=== PATIENT | female | born 1995 | race Two or more races ===

== ENCOUNTER 2025-02-17 07:01 | Outpatient (CLI) | payer OTHER ==
[2025-02-17 07:43] LABS: Hematocrit 40.8 % (36.0-46.0); Hemoglobin 14.0 g/dL (12.2-16.2); Mean Corpuscular Hemoglobin 28.6 pg (28.0-32.0); Mean Corpuscular Volume 83.1 fL (80.0-100.0); Nucleated Red Blood Cells % 0.1 %
[2025-02-17 07:54] LABS: Beta HCG, Quantitative 0.6 mIU/mL (1.5-4.2)
[2025-02-17 07:56] LABS: Alanine Aminotransferase 13 U/L (7-40); Alkaline Phosphatase 57 U/L (46-116); Anion Gap 10 (5-15); BUN/Creatinine Ratio 10.1 (10.0-20.0); Bilirubin, Total 0.5 mg/dL (0.2-1.0); Calcium 9.7 mg/dL (8.7-10.4); Carbon Dioxide 25 mmol/L (20-31); Chloride 104 mmol/L (98-107); Cholesterol 185 mg/dL (< 200); Glucose 94 mg/dL (74-106); HDL Cholesterol 48 mg/dL (40-59); Potassium 4.0 mmol/L (3.5-5.1); Sodium 139 mmol/L (136-145); Total Protein 8.0 g/dL (5.7-8.2); Triglycerides 120 mg/dL (< 150)
[2025-02-17 07:57] LABS: Albumin 5.0 g/dL (3.2-4.8); Blood Urea Nitrogen 7 mg/dL (9-23)
[2025-02-17 08:31] LABS: Urine Protein, UAD Negative (Negative)
[2025-02-17 08:45] LABS: Thyroid Stimulating Hormone 0.73 uIU/mL (0.55-4.78)
== END 2025-02-17 17:00 | disposition home or self-care (01) ==
LOC: LAB 07:01
PROVIDERS: ATTEND Nurse Practitioner Family
DX: E55.9 Vitamin D deficiency, unspecified (principal); H81.10 Benign paroxysmal vertigo, unspecified ear; Z32.01 Encounter for pregnancy test, result positive
CPT/HCPCS: 36415; 80053; 80061; 81001; 81025; 82306; 83036; 83970; 84443; 84702; 85025

== ENCOUNTER 2025-04-08 07:31 | Outpatient (CLI) | payer OTHER ==
[2025-04-08 08:05] LABS: Anion Gap 9 (5-15); Carbon Dioxide 25 mmol/L (20-31); Chloride 107 mmol/L (98-107); Potassium 4.1 mmol/L (3.5-5.1); Sodium 141 mmol/L (136-145)
[2025-04-08 08:07] LABS: Calcium 9.1 mg/dL (8.7-10.4)
[2025-04-08 08:11] LABS: BUN/Creatinine Ratio 14.1 (10.0-20.0); Blood Urea Nitrogen 9 mg/dL (9-23); Glucose 97 mg/dL (74-106)
== END 2025-04-08 17:00 | disposition home or self-care (01) ==
LOC: LAB 07:31
PROVIDERS: ATTEND Nurse Practitioner Family
DX: N92.6 Irregular menstruation, unspecified (principal)
CPT/HCPCS: 36415; 80048

== ENCOUNTER 2025-06-09 08:55 | Outpatient (CLI) | payer OTHER ==
[2025-06-09 09:33] LABS: Hematocrit 38.8 % (36.0-46.0); Hemoglobin 13.1 g/dL (12.2-16.2); Mean Corpuscular Hemoglobin 29.0 pg (28.0-32.0); Mean Corpuscular Volume 86.0 fL (80.0-100.0); Nucleated Red Blood Cells % 0.0 %
[2025-06-09 11:09] LABS: Amphetamine Screen, Urine Neg (NEGATIVE); Barbiturate Scree,Urine Neg (NEGATIVE); Benzodiazephine Screen, Urine Neg (NEGATIVE); Cannabinoid Screen, Urine Neg (NEGATIVE); Cocaine Screen, Urine Neg (NEGATIVE); Opiate Scree,Urine Neg (NEGATIVE); Phencyclidine Screen, Urine Neg (NEGATIVE)
[2025-06-11 04:06] LABS: Chlamydia Trachomatis, NAA Negative (Negative); Neisseria gonorrhoeae, NAA Negative (Negative)
== END 2025-06-09 17:00 | disposition home or self-care (01) ==
LOC: LAB 08:55
DX: Z34.00 Encounter for supervision of normal first pregnancy, unspecified trimester (principal); Z11.3 Encounter for screening for infections with a predominantly sexual mode of transmission; Z72.51 High risk heterosexual behavior
CPT/HCPCS: 36415; 80307; 83036; 84144; 84702; 85025; 86703; 86762; 86780; 86850; 86900; 86901; 87086; 87340

== ENCOUNTER 2025-06-12 19:52 | Inpatient (IN) | payer OTHER, BC ==
[~2025-06-12] VITALS: Ht 154.9 cm; Wt 65.1 kg
--- NOTE | 2025-06-12 20:17 | ED.PDOC ---
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 Patient is a ap proximately 10-11 weeks . States last night she started experiencing lower abdominal pain cramping, associated vaginal discharge. Denies any vaginal bleeding. Denies any nausea or vomiting Chief Complaint: Abdominal Pain Time Seen by MD: 20:16 Reviewed Notes: Nurses Notes Allergies: Coded Allergies: Sulfa Antibiotics (Verified Allergy, Unknown, 06/12/25) Information Source: Patient Mode of Arrival: Ambulatory Past Medical History PAST MEDICAL HISTORY: Denies Surgical History: Denies all surgeries 1 Para 0 Family History Family History: Reviewed,noncontributory to illness Social History Smoker: Non-Smoker Alcohol: Denies ETOH Use Drugs: Denies Drug Use Lives In: Home Constitutional: denies: chills, diaphoresis, fatigue, fever, malaise, sweats, weakness, others EENTM: denies: blurred vision, double vision, ear bleeding, ear discharge, ear drainage, ear pain, ear ringing, eye pain, eye redness, hearing loss, mouth pain, mouth swelling, nasal discharge, nose bleeding, nose congestion, nose pain, photophobia, tearing, throat pain, throat swelling, voice changes, others Respiratory: denies: cough, hemoptysis, orthopnea, SOB at rest, shortness of breath, SOB with excertion, stridor, wheezing, others Cardiovascular: denies: chest pain, dizzy spells, diaphoresis, Dyspnea on exertion, edema, irregular heart beat, left arm pain, lightheadedness, palpitations, PND, syncope, others Gastrointestinal: reports: abdominal pain; denies: abdomen distended, blood streaked bowels, constipated, diarrhea, dysphagia, difficulty swallowing, hematemesis, melena, nausea, poor appetite, poor fluid intake, rectal bleeding, rectal pain, vomiting, others Genitourinary: denies: abnormal vagina bleeding, burning, dyspareunia, dysuria, flank pain, frequency, hematuria, incontinence, pain, , vagina discharge, urgency, others Neurological: denies: dizziness, fainting, headache, left sided numbness, left sided weakness, numbness, paresthesia, pre-existing deficit, right sided numbness, right sided weakness, seizure, speech problems, tingling, tremors, weakness, others Musculoskeletal: denies: back pain, gout, joint pain, joint swelling, muscle pain, muscle stiffness, neck pain, others Integumetry: denies: bruises, change in color, change in hair/nails, dryness, laceration, lesions, lumps, rash, wounds, others Allergic/Immunocompromised: denies: Difficulty Healing, Frequent Infections, Hives, Itching, others Hematologic/Lymphatic: denies: anemia, blood clots, easy bleeding, easy bruising, swollen glands, others Endocrine: denies: excessive hunger, excessive sweating, excessive thirst, excessive urination, flushing, intolerance to cold, intolerance to heat, unexplained weight gain, unexplained weight loss, others Psychiatric: denies: anxiety, bipolar disorder, depression, hopeless, panic disorder, schizophrenia, sleepless, suicidal, others Physical Exam General Appearance: No Apparent Distress, Normal HEENT: Normal ENT Inspection, Pharynx Normal, TMs Normal Neck: Full Range of Motion, Non-Tender, Normal, Normal Inspection Respiratory: Chest Non-Tender, Lungs Clear, No Accessory Muscle Use, No Respiratory Distress, Normal Breath Sounds Cardiovascular: No Edema, No JVD, No Murmur, No Gallop, Normal Peripheral Pulses, Regular Rate/Rhythm Breast Exam: Deferred Gastrointestinal: No Organomegaly, Non Tender, No Pulsatile Mass, Normal Bowel Sounds, Soft Genitalia: Deferred Pelvic: Deferred Rectal: Deferred Extremities: No calf tenderness, Normal capillary refill, Normal inspection, Normal range of motion, Non-tender, No pedal edema Musculoskeletal : Apperance: Normal Neurologic: Alert, vat packer II-XII nml as Tested, No Motor Deficits, Normal Affect, Normal Mood, No Sensory Deficits Cerebellar Function: Normal Reflexes: Normal Skin: Dry, Normal Color, Warm Lymphatic: No Adenopathy Was a procedure done? Was a procedure done?: No Differential Diagnosis (SPINAL SURGEON) Vaginal Bleeding: - Missed, - Threatened, UTI X-Ray, Labs, Meds, VS Vital Signs Date Time Temp Pulse Resp B/P (MAP) Pulse Ox O2 Delivery O2 Flow Rate FiO2 06/12/25 21:47 99.1 101 16 105/74 (84) 96 99.1 06/12/25 21:47 96 18 96 Room Air 06/12/25 19:54 98.3 116 16 135/78 97 98.3 Lab Test 06/12/25 21:36 11/28/25 20:53 06/12/25 20:21 Range/Units Lactic Acid Level 1.0 0.4-2.0 mmol/L Urine Color Yellow Yellow Urine Clarity Turbid H Clear Urine pH 5.5 5.0-9.0 Urine Specific [place] 1.020 1.001-1.035 Urine Protein Negative Negative Urine Ketones 2+ H Negative Urine Blood 2+ H Negative /uL Urine Nitrite Negative Negative Urine Bilirubin Negative Negative Urine Urobilinogen Normal Negative mg/dL Urine Leukocyte Esterase 2+ Negative /uL Urine RBC 7 0 - 4 /hpf Urine Microscopic WBC 11 H 0-5 /HPF Urine Squamous Epithelial Cells Few <5 /hpf Urine Bacteria Few H None Seen /hpf Urine Mucus Few None Seen Urine Glucose Normal Normal mg/dL White Blood Count 18.2 #H 4.4-10.8 10^3/uL Red Blood Count 4.59 4.0-5.20 10^6/uL Hemoglobin 13.5 12.2-16.2 g/dL Hematocrit 40.4 36.0-46.0 % Mean Corpuscular Volume 88.1 80.0-100.0 fL Mean Corpuscular Hemoglobin 29.3 28.0-32.0 pg Mean Corpuscular Hemoglobin Concent 33.3 32.0-36.0 g/dL Red Cell Distribution Width 13.9 11.8-14.3 % Platelet Count 290 140-450 10^3/uL Mean Platelet Volume 7.9 6.9-10.8 fL Neutrophils (%) (Auto) 84.1 H 37.0-80.0 % Lymphocytes (%) (Auto) 9.4 L 10.0-50.0 % Monocytes (%) (Auto) 5.9 0.0-12.0 % Eosinophils (%) (Auto) 0.3 0.0-7.0 % Basophils (%) (Auto) 0.3 0.0-2.0 % Neutrophils # (Auto) 15.3 H 1.6-8.6 10 ^3/uL Lymphocytes # (Auto) 1.7 0.4-5.4 10 ^3/uL Monocytes # (Auto) 1.1 0-1.3 10 ^3/uL Eosinophils # (Auto) 0 0-0.8 10 ^3/uL Basophils # (Auto) 0.1 0-0.2 10 ^3/uL Nucleated Red Blood Cells 0.0 % Sodium Level 136 136-145 mmol/L Potassium Level 4.4 3.5-5.1 mmol/L Chloride Level 104 98-107 mmol/L Carbon Dioxide Level 22 20-31 mmol/L Anion Gap 10 5-15 Blood Urea Nitrogen 6 L 9-23 mg/dL Creatinine 0.49 L 0.550-1.02 mg/dL Glomerular Filtration Rate Calc 128 >90 mL/min BUN/Creatinine Ratio 12.2 10.0-20.0 Serum Glucose 141 H 74-106 mg/dL Calcium Level 9.7 8.7-10.4 mg/dL Beta HCG, Quantitative 956894.4 H 1.5-4.2 mIU/mL Current Medications Medications (Trade) Dose Ordered Sig/Ric Route Start Time Stop Time Status Last Admin Sodium Chloride 1,000 ml @ 1,000 mls/hr Q1H ONCE IV 06/12/25 21:30 06/12/25 22:29 DC 06/12/25 21:54 Ceftriaxone Sodium/Dextrose 50 ml @ 50 mls/hr ONCE ONCE IV 06/12/25 21:30 06/12/25 22:29 DC 06/12/25 22:00 Procedure: US OB ULTRASOUND COMP LESS 14WKS Study Date and Requested Time: 06/12/2025 08:28 PM Study Description: US OB ULTRASOUND COMP LESS 14WKS History: abd pain , 10 wks Comparison: Pelvic ultrasound 03/24/2025 and MRI pelvis 04/11/2025 Technique: Multiple high resolution frias-scale images obtained of the uterus, fetus, and other gestational components with M-mode scanning for evaluation of heart rate. Findings: Single live intrauterine with gestational sac, yolk sac, and fetus visualized. heart rate of 175 bpm. Estimated gestational age 10 weeks/6 days based on crown-rump length of 4.35 cm and the mean gestational sac diameter of 4.74 cm. Uterus measures 19 x 8 x 9 cm in size. There is 9.3 x 9.3 x 9.7 cm uterine fundal fibroid. Cervical os is not well-visualized. Bilateral ovaries are not visualized. No evidence of free fluid in the cul-de-sac. Impression: Single live intrauterine with heart rate of 175 bpm. Estimated gestational age 10 weeks / 6 days with estimated date of confinement 01/02/2026. Time of 1ST Reevaluation: 20:15 Reevaluation 1ST: Unchanged Patient Education/Counseling: Diagnosis, Treatment Family Education/Counseling: No Family Present Departure 1 Departure Time of Disposition: 23:05 Impression: Primary Impression: UTI (urinary tract infection) Additional Impressions: Pyelonephritis Viable in first trimester Disposition: ADMITTED INPATIENT Admit to: Med Surg Condition: Guarded Comments 30-year-old female with a 10 week now with the abdominal pain and malaise. Her white count is quite elevated 18. Urinalysis shows urinary tract infection. Ultrasound of the fetus looks normal. Patient is tachycardic. Patient will need to be admitted for early pyelonephritis and 10 week gestation . Critical Care Note Critical Care Time?: Yes (35 min-critical care time only) Critical care comment: Total critical care time: Approximately 36 minutes Due to a high probability of clinically significant, life threatening deterioration, the patient required my highest level of preparedness to intervene emergently and I personally spent this critical care time directly and personally managing the patient. This critical care time included obtaining a history; examining the patient; pulse oximetry; ordering and review of studies; arranging urgent treatment with development of a management plan; evaluation of patient's response to treatment; frequent reassessment; and, discussions with other providers. This critical care time was performed to assess and manage the high probability of imminent, life-threatening deterioration that could result in multi-organ failure. It was exclusive of separately billable procedures and treating other patients. Stability Stability form required: No Heart Score Heart Score: Heart Score Response (Comments) Value History N/A 0 EKG N/A 0 Age N/A 0 Risk Factors N/A 0 Troponin N/A 0 Total 0 I personally scribed for MIL CARRASQUILLO MD ([email or web address]) on 06/12/25 at 20:16. Electronically submitted by Israel Ferris ([email or web address]). I personally scribed for MIL CARRASQUILLO MD ([email or web address]) on 06/12/25 at 21:23. Electronically submitted by Israel Ferris ([email or web address]). MIL CARRASQUILLO MD Jun 12, 2025 20:16
[2025-06-12 20:29] LABS: Hematocrit 40.4 % (36.0-46.0); Hemoglobin 13.5 g/dL (12.2-16.2); Mean Corpuscular Hemoglobin 29.3 pg (28.0-32.0); Mean Corpuscular Volume 88.1 fL (80.0-100.0); Nucleated Red Blood Cells % 0.0 %
[2025-06-12 20:37] LABS: Chloride 104 mmol/L (98-107); Potassium 4.4 mmol/L (3.5-5.1)
[2025-06-12 20:38] LABS: Anion Gap 10 (5-15); Calcium 9.7 mg/dL (8.7-10.4); Carbon Dioxide 22 mmol/L (20-31)
[2025-06-12 20:39] LABS: Sodium 136 mmol/L (136-145)
[2025-06-12 20:43] LABS: BUN/Creatinine Ratio 12.2 (10.0-20.0)
[2025-06-12 20:49] LABS: Blood Urea Nitrogen 6 mg/dL (9-23); Glucose 141 mg/dL (74-106)
--- NOTE | 2025-06-12 21:03 | DVH ---
Procedure: US OB ULTRASOUND COMP LESS 14WKS Study Date and Requested Time: 06/12/2025 08:28 PM Study Description: US OB ULTRASOUND COMP LESS 14WKS History: abd pain , 10 wks Comparison: Pelvic ultrasound 03/24/2025 and MRI pelvis 04/11/2025 Technique: Multiple high resolution frias-scale images obtained of the uterus, fetus, and other gestational components with M-mode scanning for evaluation of heart rate. Findings: Single live intrauterine with gestational sac, yolk sac, and fetus visualized. heart rate of 175 bpm. Estimated gestational age 10 weeks/6 days based on crown-rump length of 4.35 cm and the mean gestational sac diameter of 4.74 cm. Uterus measures 19 x 8 x 9 cm in size. There is 9.3 x 9.3 x 9.7 cm uterine fundal fibroid. Cervical os is not well-visualized. Bilateral ovaries are not visualized. No evidence of free fluid in the cul-de-sac. Impression: Single live intrauterine with heart rate of 175 bpm. Estimated gestational age 10 weeks / 6 days with estimated date of confinement 01/02/2026.
[2025-06-12 21:04] LABS: Urine Protein, UAD Negative (Negative)
[2025-06-12] MEDS: SODIUM CHLORIDE 0.9% 1,000 ML IV ONE (21:54)
--- NOTE | 2025-06-12 23:33 | DVHHPRES ---
History of Present Illness Resident Creating Document: ALIZE RIGGS RESIDENT History of Present Illness This is a 30 years old female , 10+ week without any significant past medical history presented to the ED with a chief complaint of abdominal pain and per vaginal discharge since yesterday prior to this admission. She states that since yesterday started having crampy abdominal pain 8/10 radiate to the back and associated with brownish per vaginal discharge. She also mentioned that since last 2 days she was not experiencing any morning sickness or breast tenderness that prompted this visit. Her 1st OBGYN visit was last Sunday with Dr. Bartlett and the imaging, all lab work were normal. She is taking vitamins and denies any other medication or illicit drug use. She used to have recurrent UTI in her 20s but for last 5 years she did not experience any urinary symptoms. She denies fever, chills, shortness of breath, frequency, urgency, burning sensation in the urine or any hematuria. PCP: Dr. Turpin Past Medical History None Past Surgical History None Family History Family history significant for hypertension, CVA and ischemic heart disease Past Social History Lives with family Nonsmoker, nonalcoholic and never tried any illicit drugs Review of Systems Constitutional: No: Fever, Chills, Sweats, Weakness, Malaise, Other Eyes: No: Pain, Vision change, Conjunctivae inflammation, Eyelid inflammation, Other, Redness ENT: No: Ear pain, Ear discharge, Nose pain, Nose discharge, Nose congestion, Mouth pain, Mouth swelling, Throat pain, Throat swelling, Other Respiratory: No: Cough, Dry, Shortness of breath, SOB with excertion, Wheezing, Hemoptysis, Pleuritic Pain, Sputum, Wheezing, Other Cardiovascular: No: Chest Pain, Palpitations, Orthopnea, Paroxysmal Noc. Dyspnea, Edema, Lt Headedness, Other Gastrointestinal: Abdominal Pain; No: Nausea, Vomiting, Diarrhea, Constipation, Melena, Hematochezia, Other Genitourinary: No Dysuria, No Frequency, No Incontinence, No Hematuria, No Retention, No Other (Per vaginal discharge) Musculoskeletal: back pain; No: other, neck pain, shoulder pain, arm pain, hand pain, leg pain, foot pain Skin: No: Rash, Lesions, Jaundice, Bruising, Other Neurological: No: Weakness, Numbness, Incoordination, Change in speech, Confusion, Seizures, Other Allergies: Coded Allergies: Sulfa Antibiotics (Verified Allergy, Unknown, 06/12/25) Exam Vital Signs Vital Signs Date Time Temp Pulse Resp B/P (MAP) Pulse Ox O2 Delivery O2 Flow Rate FiO2 06/12/25 21:47 99.1 101 16 105/74 (84) 96 99.1 06/12/25 21:47 Room Air Exam Physical examination: General Appearance: Alert, Oriented X3, Cooperative, No acute distress HEENT: Atraumatic, PERRLA, EOMI, Mucous membrane moist/pink Respiratory: Clear to auscultation, Normal air movement Cardiovascular: Regular rate, Normal S1, Normal S2, No murmurs, no chest wall tenderness Abdominal: Normal bowel sounds, Soft, No tenderness, No hepatospenomegaly, No masses Extremities: No clubbing, No cyanosis, No edema, Normal pulses, No tenderness/swelling Skin: No rashes, No breakdown, No significant lesion Neuro: Normal gait, Normal speech, Strength at 5/5 X4 ext, Normal tone, Sens ation intact, Cranial nerves 3-12 NL, Reflexes 2+ Psych/Mental Status: Mental status NL, Mood NL Labs/Xrays Labs Test 06/12/25 21:36 06/12/25 20:53 06/12/25 20:21 Range/Units Lactic Acid Level 1.0 0.4-2.0 mmol/L Urine Color Yellow Yellow Urine Clarity Turbid H Clear Urine pH 5.5 5.0-9.0 Urine Specific [place] 1.020 1.001-1.035 Urine Protein Negative Negative Urine Ketones 2+ H Negative Urine Blood 2+ H Negative /uL Urine Nitrite Negative Negative Urine Bilirubin Negative Negative Urine Urobilinogen Normal Negative mg/dL Urine Leukocyte Esterase 2+ Negative /uL Urine RBC 7 0 - 4 /hpf Urine Microscopic WBC 11 H 0-5 /HPF Urine Squamous Epithelial Cells Few <5 /hpf Urine Bacteria Few H None Seen /hpf Urine Mucus Few None Seen Urine Glucose Normal Normal mg/dL White Blood Count 18.2 #H 4.4-10.8 10^3/uL Red Blood Count 4.59 4.0-5.20 10^6/uL Hemoglobin 13.5 12.2-16.2 g/dL Hematocrit 40.4 36.0-46.0 % Mean Corpuscular Volume 88.1 80.0-100.0 fL Mean Corpuscular Hemoglobin 29.3 28.0-32.0 pg Mean Corpuscular Hemoglobin Concent 33.3 32.0-36.0 g/dL Red Cell Distribution Width 13.9 11.8-14.3 % Platelet Count 290 140-450 10^3/uL Mean Platelet Volume 7.9 6.9-10.8 fL Neutrophils (%) (Auto) 84.1 H 37.0-80.0 % Lymphocytes (%) (Auto) 9.4 L 10.0-50.0 % Monocytes (%) (Auto) 5.9 0.0-12.0 % Eosinophils (%) (Auto) 0.3 0.0-7.0 % Basophils (%) (Auto) 0.3 0.0-2.0 % Neutrophils # (Auto) 15.3 H 1.6-8.6 10 ^3/uL Lymphocytes # (Auto) 1.7 0.4-5.4 10 ^3/uL Monocytes # (Auto) 1.1 0-1.3 10 ^3/uL Eosinophils # (Auto) 0 0-0.8 10 ^3/uL Basophils # (Auto) 0.1 0-0.2 10 ^3/uL Nucleated Red Blood Cells 0.0 % Sodium Level 136 136-145 mmol/L Potassium Level 4.4 3.5-5.1 mmol/L Chloride Level 104 98-107 mmol/L Carbon Dioxide Level 22 20-31 mmol/L Anion Gap 10 5-15 Blood Urea Nitrogen 6 L 9-23 mg/dL Creatinine 0.49 L 0.550-1.02 mg/dL Glomerular Filtration Rate Calc 128 >90 mL/min BUN/Creatinine Ratio 12.2 10.0-20.0 Serum Glucose 141 H 74-106 mg/dL Calcium Level 9.7 8.7-10.4 mg/dL Beta HCG, Quantitative 183370.4 H 1.5-4.2 mIU/mL SEPSIS Sepsis Screen Date sepsis recognized/suspect: Jun 12, 2025 Time Sepsis recognized/suspect: 1956 Recent Procedure: No On Antibiotic Therapy: No Respiratory Rate >20: No Heart Rate >90: Yes Temp<36 C (96.8 F) or >38.3 C: No SBP <90 or MAP <65 mmHG: No New Acute Mental Status Change: No Is the patient on CPAP, BIPAP,: No Physician Orders Ob Ultrasound Comp Less 14wks (06/12/25 20:12) Blood Culture (06/12/25 21:30) Admit (06/12/25 23:30) Code Status (06/12/25 23:30) Vital Signs Date Time Temp Pulse Resp B/P (MAP) Pulse Ox O2 Delivery O2 Flow Rate FiO2 06/12/25 21:47 99.1 101 16 105/74 (84) 96 99.1 06/12/25 21:47 96 18 96 Room Air 06/12/25 19:54 98.3 116 16 135/78 97 98.3 Laboratory Tests Test 06/12/25 20:21 06/12/25 21:36 White Blood Count 18.2 10^3/uL (4.4-10.8) #H Lactic Acid Level 1.0 mmol/L (0.4-2.0) Medications Medications Dose Ordered Sig/Ric Route Start Time Stop Time Status Last Admin Dose Admin Ceftriaxone Sodium/Dextrose 50 ml @ 50 mls/hr ONCE ONCE IV 06/12/25 21:30 06/12/25 22:29 DC 06/12/25 22:00 50 MLS/HR Sodium Chloride 1,000 ml @ 1,000 mls/hr Q1H ONCE IV 06/12/25 21:30 06/12/25 22:29 DC 06/12/25 21:54 1,000 MLS/HR Assessment/Plan Assessment/Plan Assessment and plan: # Acute complicated UTI in 1st trimester of # Rule out pyelonephritis # Possible threatened - CBC revealed leukocytosis with left shift - Beta hCG elevated - Obstetric ultrasound showed single live intrauterine with heart rate of 175 bpm. Estimated gestational age 10 weeks / 6 days - U/A was consistent with the UTI - H&H 13.5/40.4 - Ordered kidney ultrasound, urine bacterial culture - IV NS at 75 mL/hours - IV ceftriaxone 1 g daily - Consulted OBGYN Goal of care and code status discussed with the patient for more than 23 minutes full code Plan discussed with Dr. Reid Plan discussed with: Patient, Other (RN) My Orders Orders - ALIZE RIGGS Procedure Category Date Status Time Admit ADMIT 06/12/25 Transmitted 23:30 Code Status CODE 06/12/25 Transmitted 23:30 Date of Service: Jun 13, 2025 Billing Provider: JANETTE REID MD Common Visit Codes: 62565-UOKWENI INP/OBS CARE (HIGH) ALIZE RIGGS RESIDENT Jun 12, 2025 23:33
[2025-06-12] MEDS: SODIUM CHLORIDE 0.9% 1,000 ML IV SCH (23:45)
[2025-06-13] VITALS (9 sets, daily range): BP systolic 106–117; BP diastolic 61–74; PULSE 79–105; RESP 16–18; TEMP 97.6–99; O2SAT 94–100
--- NOTE | 2025-06-13 00:34 | DVH ---
INDICATION: UTI TECHNIQUE: Multiple real-time sonographic images of the kidneys and bladder were obtained. COMPARISON: None FINDINGS: RIGHT kidney measures 10.4 cm in length. No nephrolithiasis or hydronephrosis. LEFT kidney measures 10.4 cm in length. No nephrolithiasis or hydronephrosis. No large intraluminal masses are seen in the bladder. No significant postvoid residual. IMPRESSION: 1. Normal renal ultrasound.
[2025-06-13 06:54] LABS: Hematocrit 36.8 % (36.0-46.0); Hemoglobin 12.5 g/dL (12.2-16.2); Mean Corpuscular Hemoglobin 29.4 pg (28.0-32.0); Mean Corpuscular Volume 86.6 fL (80.0-100.0); Nucleated Red Blood Cells % 0.0 %
[2025-06-13 07:03] LABS: Alanine Aminotransferase 18 U/L (7-40); Albumin 4.3 g/dL (3.2-4.8); Anion Gap 11 (5-15); Bilirubin, Total 0.6 mg/dL (0.2-1.0); Calcium 9.2 mg/dL (8.7-10.4); Carbon Dioxide 21 mmol/L (20-31); Chloride 106 mmol/L (98-107); Glucose 98 mg/dL (74-106); Potassium 3.7 mmol/L (3.5-5.1); Sodium 138 mmol/L (136-145); Total Protein 7.5 g/dL (5.7-8.2)
[2025-06-13 07:11] LABS: BUN/Creatinine Ratio 11.4 (10.0-20.0); Blood Urea Nitrogen < 5 mg/dL (9-23)
[2025-06-13 07:33] LABS: Alkaline Phosphatase 59 U/L (46-116)
--- NOTE | 2025-06-13 11:50 | DVHINCON2 ---
DATE OF CONSULTATION: 06/13/2025 REASON FOR CONSULTATION: and complicated UTI. HISTORY OF PRESENT ILLNESS: The patient is a 30-year-old 1, para 0 female with due date of 01/04 based on Early Sono in my office, admitted for vaginal discharge and cramping. The patient was noted to have a urinary tract infection. She denies having any bleeding at this point. Her ultrasound reveals IUP at 10 weeks and 6 days with due date of 01/02. PAST MEDICAL HISTORY: None. PAST SURGICAL HISTORY: None. SOCIAL HISTORY: None. FAMILY HISTORY: Positive for hypertension. ALLERGIES: No known drug allergies. REVIEW OF SYSTEMS: Consistent with HPI. PHYSICAL EXAMINATION: VITAL SIGNS: Stable, afebrile. HEENT: Within normal limits. CARDIOVASCULAR: Regular rate and rhythm. LUNGS: Clear to auscultation. BREASTS: No masses. ABDOMEN: Soft, nontender. PELVIC: Defect. No bleeding noted. Vaginally cervix grossly normal. Uterus tendon size and an excellent nonpalpable. EXTREMITIES: No clubbing, cyanosis, or edema. IMPRESSION: * Intrauterine at 10+ weeks with known fibroids. * Urinary tract infection. PLAN: IV antibiotic, IV hydration. The patient will follow up with me on an outpatient basis after she is discharged. The patient is advised to avoid any exercise or intercourse. Thank you very much for this consultation. We will sign off. DO JESSE Scott TID: [id number] RECEIPT: [id number]
[2025-06-13] MEDS: ACETAMINOPHEN 325 MG TAB PO PRN (13:13)
[2025-06-13] MEDS: ACETAMINOPHEN 325 MG TAB PO ONE (13:17)
[2025-06-14] VITALS (8 sets, daily range): BP systolic 115–124; BP diastolic 66–80; PULSE 93–113; RESP 16–17; TEMP 98–98.3; O2SAT 96–98
--- NOTE | 2025-06-15 00:10 | DVHPN2 ---
Reviewed: Care Plan, H&P, Labs, Medications, Previous Orders, Radiology Changes from previous H/P or p: No Changes General: Per HPI Eyes: No Pain, No Vision change, No Conjunctivae inflammation, No Eyelid inflammation, No Other, No Redness ENT: No Ear pain, No Ear discharge, No Nose pain, No Nose discharge, No Nose congestion, No Mouth pain, No Mouth swelling, No Throat pain, No Throat swelling, No Other Cardiovascular: No Chest Pain, No Palpitations, No Orthopnea, No Paroxysmal Noc. Dyspnea, No Edema, No Lt Headedness, No Other Respiratory: No Cough, No Dry, No Shortness of breath, No SOB with excertion, No Wheezing, No Hemoptysis, No Pleuritic Pain, No Sputum, No Other Gastrointestinal: No Nausea, No Vomiting; Abdominal Pain; No Diarrhea, No Constipation, No Melena, No Hematochezia, No Other Genitourinary: No Dysuria, No Frequency, No Incontinence, No Hematuria, No Retention, No Other (Per vaginal discharge) Musculoskeletal: No other, No neck pain, No shoulder pain, No arm pain; back pain; No hand pain, No leg pain, No foot pain Skin: No Rash, No Lesions, No Jaundice, No Bruising, No Other Objective Vitals Vital Signs Date Time Temp Pulse Resp B/P (MAP) Pulse Ox O2 Delivery O2 Flow Rate FiO2 06/14/25 21:00 98.2 113 17 124/80 (95) 98 98.2 06/14/25 20:00 Room Air* 0 21 Intake/Output Intake and Output 06/15/25 07:00 Intake Total 600 ml Balance 600 ml Intake Oral 600 ml # Voids 1 General Appearance: Alert, Oriented X3, Cooperative Cardiovascular: Regular rate, Normal S1, Normal S2 Abdomen: Normal bowel sounds, Soft Medications Current Medications Medications Dose Ordered Sig/Ric Route Start Time Stop Time Status Last Admin Dose Admin Ceftriaxone Sodium 50 ml @ 100 mls/hr Q24H IV 06/13/25 21:00 06/14/25 21:14 100 MLS/HR Sodium Chloride 1,000 ml @ 75 mls/hr [id number] IV 06/12/25 23:45 06/14/25 19:02 75 MLS/HR Acetaminophen 650 mg Q6HP PRN PO 06/13/25 13:00 06/14/25 19:02 650 MG Laboratory Results Laboratory Tests 06/13/25 06:37 Urinalysis Test 06/12/25 20:53 Urine Color Yellow (Yellow) Urine Clarity Turbid (Clear) H Urine pH 5.5 (5.0-9.0) Urine Specific [place] 1.020 (1.001-1.035) Urine Protein Negative (Negative) Urine Ketones 2+ (Negative) H Urine Blood 2+ /uL (Negative) H Urine Nitrite Negative (Negative) Urine Bilirubin Negative (Negative) Urine Urobilinogen Normal mg/dL (Negative) Urine Leukocyte Esterase 2+ /uL (Negative) Urine RBC 7 /hpf (0 - 4) Urine Microscopic WBC 11 /HPF (0-5) H Urine Squamous Epithelial Cells Few /hpf (<5) Urine Bacteria Few /hpf (None Seen) H Urine Mucus Few (None Seen) Urine Glucose Normal mg/dL (Normal) Microbiology Microbiology Date/Time Source Procedure Growth Status 06/12/25 21:38 Blood Blood Culture - Preliminary NO GROWTH AFTER 48 HOURS OF INCUBATION. Resulted 06/12/25 20:53 Voided Urine Urine Culture - Preliminary No growth Resulted Labs and/or images reviewed: Labs reviewed by me, Image(s) reviewed by me Assessment/Plan Assessment/Plan This is a 30 years old female , 10+ week without any significant past medical history presented to the ED with a chief complaint of abdominal pain and per vaginal discharge since yesterday prior to this admission. She states that since yesterday started having crampy abdominal pain 8/10 radiate to the back and associated with brownish per vaginal discharge. She also mentioned that since last 2 days she was not experiencing any morning sickness or breast tenderness that prompted this visit. Her 1st OBGYN visit was last Sunday with Dr. Bartlett and the imaging, all lab work were normal. She is taking vitamins and denies any other medication or illicit drug use. She used to have recurrent UTI in her 20s but for last 5 years she did not experience any urinary symptoms. She denies fever, chills, shortness of breath, frequency, urgency, burning sensation in the urine or any hematuria. # Acute complicated UTI in 1st trimester of # Rule out pyelonephritis # Possible threatened - CBC revealed leukocytosis with left shift - Beta hCG elevated - Obstetric ultrasound showed single live intrauterine with heart rate of 175 bpm. Estimated gestational age 10 weeks / 6 days - U/A was consistent with the UTI - H&H 13.5/40.4 - Ordered kidney ultrasound, urine bacterial culture - IV NS at 75 mL/hours - IV ceftriaxone 1 g daily - Consulted OBGYN Goal of care and code status discussed with the patient for more than 23 minutes full code 06/13/2025: pending urine culture. currently on ceftriaxone Plan discussed with: Patient Date of Service: Jun 13, 2025 Billing Provider: SEDA BRANDT DO Common Visit Codes: [id number] INP/OBS CARE(HIGH) SEDA BRANDT DO Jun 15, 2025 00:10
--- NOTE | 2025-06-15 00:12 | DVHPN2 ---
Reviewed: Care Plan, H&P, Labs, Medications, Previous Orders, Radiology Changes from previous H/P or p: No Changes General: Per HPI Eyes: No Pain, No Vision change, No Conjunctivae inflammation, No Eyelid inflammation, No Other, No Redness ENT: No Ear pain, No Ear discharge, No Nose pain, No Nose discharge, No Nose congestion, No Mouth pain, No Mouth swelling, No Throat pain, No Throat swelling, No Other Cardiovascular: No Chest Pain, No Palpitations, No Orthopnea, No Paroxysmal Noc. Dyspnea, No Edema, No Lt Headedness, No Other Respiratory: No Cough, No Dry, No Shortness of breath, No SOB with excertion, No Wheezing, No Hemoptysis, No Pleuritic Pain, No Sputum, No Other Gastrointestinal: No Nausea, No Vomiting; Abdominal Pain; No Diarrhea, No Constipation, No Melena, No Hematochezia, No Other Genitourinary: No Dysuria, No Frequency, No Incontinence, No Hematuria, No Retention, No Other (Per vaginal discharge) Musculoskeletal: No other, No neck pain, No shoulder pain, No arm pain; back pain; No hand pain, No leg pain, No foot pain Skin: No Rash, No Lesions, No Jaundice, No Bruising, No Other Objective Vitals Vital Signs Date Time Temp Pulse Resp B/P (MAP) Pulse Ox O2 Delivery O2 Flow Rate FiO2 06/14/25 21:00 98.2 113 17 124/80 (95) 98 98.2 06/14/25 20:00 Room Air* 0 21 Intake/Output Intake and Output 06/15/25 07:00 Intake Total 600 ml Balance 600 ml Intake Oral 600 ml # Voids 1 General Appearance: Alert, Oriented X3, Cooperative Cardiovascular: Regular rate, Normal S1, Normal S2 Abdomen: Normal bowel sounds, Soft Medications Current Medications Medications Dose Ordered Sig/Ric Route Start Time Stop Time Status Last Admin Dose Admin Ceftriaxone Sodium 50 ml @ 100 mls/hr Q24H IV 06/13/25 21:00 06/14/25 21:14 100 MLS/HR Sodium Chloride 1,000 ml @ 75 mls/hr [id number] IV 06/12/25 23:45 06/14/25 19:02 75 MLS/HR Acetaminophen 650 mg Q6HP PRN PO 06/13/25 13:00 06/14/25 19:02 650 MG Laboratory Results Laboratory Tests 06/13/25 06:37 Urinalysis Test 06/12/25 20:53 Urine Color Yellow (Yellow) Urine Clarity Turbid (Clear) H Urine pH 5.5 (5.0-9.0) Urine Specific [place] 1.020 (1.001-1.035) Urine Protein Negative (Negative) Urine Ketones 2+ (Negative) H Urine Blood 2+ /uL (Negative) H Urine Nitrite Negative (Negative) Urine Bilirubin Negative (Negative) Urine Urobilinogen Normal mg/dL (Negative) Urine Leukocyte Esterase 2+ /uL (Negative) Urine RBC 7 /hpf (0 - 4) Urine Microscopic WBC 11 /HPF (0-5) H Urine Squamous Epithelial Cells Few /hpf (<5) Urine Bacteria Few /hpf (None Seen) H Urine Mucus Few (None Seen) Urine Glucose Normal mg/dL (Normal) Microbiology Microbiology Date/Time Source Procedure Growth Status 06/12/25 21:38 Blood Blood Culture - Preliminary NO GROWTH AFTER 48 HOURS OF INCUBATION. Resulted 06/12/25 20:53 Voided Urine Urine Culture - Preliminary No growth Resulted Assessment/Plan Assessment/Plan This is a 30 years old female , 10+ week without any significant past medical history presented to the ED with a chief complaint of abdominal pain and per vaginal discharge since yesterday prior to this admission. She states that since yesterday started having crampy abdominal pain 8/10 radiate to the back and associated with brownish per vaginal discharge. She also mentioned that since last 2 days she was not experiencing any morning sickness or breast tenderness that prompted this visit. Her 1st OBGYN visit was last Sunday with Dr. Bartlett and the imaging, all lab work were normal. She is taking vitamins and denies any other medication or illicit drug use. She used to have recurrent UTI in her 20s but for last 5 years she did not experience any urinary symptoms. She denies fever, chills, shortness of breath, frequency, urgency, burning sensation in the urine or any hematuria. # Acute complicated UTI in 1st trimester of # Rule out pyelonephritis # Possible threatened - CBC revealed leukocytosis with left shift - Beta hCG elevated - Obstetric ultrasound showed single live intrauterine with heart rate of 175 bpm. Estimated gestational age 10 weeks / 6 days - U/A was consistent with the UTI - H&H 13.5/40.4 - Ordered kidney ultrasound, urine bacterial culture - IV NS at 75 mL/hours - IV ceftriaxone 1 g daily - Consulted OBGYN Goal of care and code status discussed with the patient for more than 23 minutes full code pending urine culture. currently on ceftriaxone Plan discussed with: Patient Date of Service: Jun 14, 2025 Billing Provider: SEDA BRANDT DO Common Visit Codes: [id number] INP/OBS CARE(HIGH) SEDA BRANDT DO Jun 15, 2025 00:12
[2025-06-15 01:00] VITALS: BP 116/74; PULSE 96; RESP 16; TEMP 98.4; O2SAT 97
[2025-06-15 05:00] VITALS: BP 111/74; PULSE 91; RESP 18; TEMP 98; O2SAT 97
[2025-06-15 08:00] VITALS: PULSE 91; RESP 18; O2SAT 97
[2025-06-15 09:00] VITALS: BP 108/64; PULSE 82; RESP 17; TEMP 98.1; O2SAT 97
--- NOTE | 2025-06-15 12:41 | DVHPN2 ---
Visit Coding OBGYN Date of Service: Jun 13, 2025 Billing Provider: JEWEL GUTHRIE DO [employer]PER Common Visit Codes: [id number] OBS CARE (HIGH) [employer] Consultation Codes: [id number] CONSULT <110MIN JEWEL GUTHRIE DO Jun 15, 2025 12:41
[2025-06-15 13:00] VITALS: BP 119/71; PULSE 88; RESP 20; TEMP 98; O2SAT 100
[2025-06-15] MEDS ORDERED: NITR-52 PO (13:09)
[2025-06-15 15:00] VITALS: BP 119/71; PULSE 88; RESP 20; TEMP 98; O2SAT 100
--- NOTE | 2025-06-15 16:47 | DVHDS2 ---
Discharge Summary Date of Admission Jun 12, 2025 at 23:30 Date of Discharge: Jun 15, 2025 Labs/Diagnostic Data: Laboratory Results Test 06/13/25 06:37 06/12/25 21:36 06/12/25 20:53 06/12/25 20:21 White Blood Count 15.8 10^3/uL (4.4-10.8) Red Blood Count 4.25 10^6/uL (4.0-5.20) Hemoglobin 12.5 g/dL (12.2-16.2) Hematocrit 36.8 % (36.0-46.0) Mean Corpuscular Volume 86.6 fL (80.0-100.0) Mean Corpuscular Hemoglobin 29.4 pg (28.0-32.0) Mean Corpuscular Hemoglobin Concent 33.9 g/dL (32.0-36.0) Red Cell Distribution Width 13.4 % (11.8-14.3) Platelet Count 265 10^3/uL (140-450) Mean Platelet Volume 7.8 fL (6.9-10.8) Neutrophils (%) (Auto) 84.4 % (37.0-80.0) Lymphocytes (%) (Auto) 9.6 % (10.0-50.0) Monocytes (%) (Auto) 5.6 % (0.0-12.0) Eosinophils (%) (Auto) 0.1 % (0.0-7.0) Basophils (%) (Auto) 0.3 % (0.0-2.0) Neutrophils # (Auto) 13.4 10 ^3/uL (1.6-8.6) Lymphocytes # (Auto) 1.5 10 ^3/uL (0.4-5.4) Monocytes # (Auto) 0.9 10 ^3/uL (0-1.3) Eosinophils # (Auto) 0 10 ^3/uL (0-0.8) Basophils # (Auto) 0 10 ^3/uL (0-0.2) Nucleated Red Blood Cells 0.0 % Sodium Level 138 mmol/L (136-145) Potassium Level 3.7 mmol/L (3.5-5.1) Chloride Level 106 mmol/L (98-107) Carbon Dioxide Level 21 mmol/L (20-31) Anion Gap 11 (5-15) Blood Urea Nitrogen < 5 mg/dL (9-23) Creatinine 0.44 mg/dL (0.550-1.02) Glomerular Filtration Rate Calc 132 mL/min (>90) BUN/Creatinine Ratio 11.4 (10.0-20.0) Serum Glucose 98 mg/dL (74-106) Calcium Level 9.2 mg/dL (8.7-10.4) Total Bilirubin 0.6 mg/dL (0.2-1.0) Aspartate Amino Transferase (AST) 17 U/L (13-40) Alanine Aminotransferase (ALT) 18 U/L (7-40) Alkaline Phosphatase 59 U/L (46-116) Total Protein 7.5 g/dL (5.7-8.2) Albumin 4.3 g/dL (3.2-4.8) Lactic Acid Level 1.0 mmol/L (0.4-2.0) Urine Color Yellow (Yellow) Urine Clarity Turbid (Clear) Urine pH 5.5 (5.0-9.0) Urine Specific [place] 1.020 (1.001-1.035) Urine Protein Negative (Negative) Urine Ketones 2+ (Negative) Urine Blood 2+ /uL (Negative) Urine Nitrite Negative (Negative) Urine Bilirubin Negative (Negative) Urine Urobilinogen Normal mg/dL (Negative) Urine Leukocyte Esterase 2+ /uL (Negative) Urine RBC 7 /hpf (0 - 4) Urine Microscopic WBC 11 /HPF (0-5) Urine Squamous Epithelial Cells Few /hpf (<5) Urine Bacteria Few /hpf (None Seen) Urine Mucus Few (None Seen) Urine Glucose Normal mg/dL (Normal) Beta HCG, Quantitative 619145.4 mIU/mL Other Laboratory Tests 06/13/25 06:37 Brief Hx & Hospital Course: 30 years old female , 10+ week without any significant past medical history presented to the ED with a chief complaint of abdominal pain and per vaginal discharge since yesterday prior to this admission. She states that since yesterday started having crampy abdominal pain 8/10 radiate to the back and associated with brownish per vaginal discharge. She also mentioned that since last 2 days she was not experiencing any morning sickness or breast tenderness that prompted this visit. Her 1st OBGYN visit was last Sunday with Dr. Bartlett and the imaging, all lab work were normal. She is taking vitamins and denies any other medication or illicit drug use. She used to have recurrent UTI in her 20s but for last 5 years she did not experience any urinary symptoms. She denies fever, chills, shortness of breath, frequency, urgency, burning sensation in the urine or any hematuria. During hospital stay seen by OB and reasured. UTI and treated with IV abx DC on nitrofurantoin. Condition at Discharge: Good Final Diagnosis/Problems List UTI Discharge Disposition: Home Discharge Instruct/Medications Diet: Regular Activity: No Restrictions, As Tolerated Follow Up/Referral: ob in 7 days Medications: nitrofurantoin Scheduled Nitrofurantoin (Nitrofurantoin), 1 CAP PO BID Discharge Statement: "Patient was advised to return to the ER or call 911 if any headaches, dizziness, shortness of breath, chest pain, abdominal pain, bleeding, fevers, or worsening of medical condition. Patient was counseled about treatment plan, medications, possible side effects, patientverbalized understanding. All questions were answered to the best of my ability. This discharge took greater then 30 minutes in planning, reviewing documentation, counseling the patient, and discussing with other team members." ASSESSMENT ASSESSMENT Assessment UTI Date of Service: Jun 15, 2025 Billing Provider: GUILLE MURPHY MD Common Visit Codes: [id number]-HTI/OBS DISCH DAY >30min GUILLE MURPHY MD Jun 15, 2025 16:47
== END 2025-06-15 16:03 | disposition home or self-care (01) | DRG 832 ==
LOC: ER 19:52 → OVERFLOW 23:30 → CENTRAL 06-13 18:12
PROVIDERS: ADMIT Hospitalist; ATTEND Hospitalist
DX: O23.11 Infections of bladder in pregnancy, first trimester (principal); N30.00 Acute cystitis without hematuria; D25.9 Leiomyoma of uterus, unspecified; O34.11 Maternal care for benign tumor of corpus uteri, first trimester; Z3A.10 10 weeks gestation of pregnancy; Z82.49 Family history of ischemic heart disease and other diseases of the circulatory system
CPT/HCPCS: 36415; 76775; 76801; 80048; 80053; 81001; 83605; 84702; 85025; 87040; 87086; 99291; G0378